=== PATIENT | male | born 1980 | race Two or more races ===

== ENCOUNTER 2021-11-19 23:47 | Emergency (ER) | payer MEDICAID ==
[~2021-11-19] VITALS: Ht 190.5 cm; Wt 87.6 kg
[2021-11-20 05:30] VITALS: BP 140/93
[2021-11-20] MEDS ORDERED: HYDROcodone-ACET 10/325MG TAB PO ONE (07:00)
[2021-11-20] MEDS ORDERED: CLIN300C8 PO (07:13)
[2021-11-20] MEDS ORDERED: BENZ20SO3 MT (07:13)
== END 2021-11-20 07:44 | disposition home or self-care (01) ==
LOC: ER 23:47
DX: K04.7 Periapical abscess without sinus (principal); F17.210 Nicotine dependence, cigarettes, uncomplicated; F12.10 Cannabis abuse, uncomplicated; Z59.00 Homelessness unspecified